=== PATIENT | female | born 1940 | race Caucasian/White ===

== ENCOUNTER 2017-01-09 10:59 | Emergency (ER) | payer MEDICARE, BC ==
[2017-01-09 11:28] VITALS: BP 158/79
--- NOTE | 2017-01-09 11:54 | EDM.PDOC ---
ED HPI GENERAL MEDICAL PROBLEM - General Chief Complaint: Upper Extremity Injury/Pain Stated Complaint: FELL Time Seen by Provider: 01/09/17 11:47 Source of Information: Reports: Patient, Family History Limitations: Reports: No Limitations - History of Present Illness INITIAL COMMENTS - FREE TEXT/NARRATIVE: Pt was walking up the deck when she slipped and fell landing on her left elbow. Daughter states that she also fainted just briefly after falling. Does have known history of osteoporosis. Onset: Today Location: Reports: Upper Extremity, Left Quality: Reports: Ache Severity: Mild Improves with: Reports: None Worsens with: Reports: Movement Context: Reports: Trauma Associated Symptoms: Reports: No Other Symptoms - Related Data Allergies Allergy/AdvReac Type Severity Reaction Status Date / Time erythromycin base Allergy Rash Verified 01/09/17 11:36 Latex, Natural Rubber Allergy Other Verified 01/09/17 11:36 nitrofurantoin Allergy Rash Verified 01/09/17 11:36 [From Macrodantin] Review of Systems - Review of Systems Review Of Systems: See Below Constitutional: Reports: No Symptoms Eyes: Reports: No Symptoms Ears: Reports: No Symptoms Nose: Reports: No Symptoms Mouth/Throat: Reports: No Symptoms Respiratory: Reports: No Symptoms Cardiovascular: Reports: No Symptoms Genitourinary: Reports: No Symptoms Musculoskeletal: Reports: Arm Pain Skin: Reports: No Symptoms Neurological: Reports: Syncope ED EXAM, GENERAL - Physical Exam Exam: See Below Exam Limited By: No Limitations General Appearance: Alert, WD/WN, No Apparent Distress Ears: Normal External Exam, Normal Canal, Hearing Grossly Normal, Normal TMs Nose: Normal Inspection, Normal Mucosa, No Blood Throat/Mouth: Normal Inspection, Normal Lips, Normal Teeth, Normal Gums, Normal Oropharynx, Normal Voice, No Airway Compromise Head: Atraumatic, Normocephalic Neck: Normal Inspection, Supple, Non-Tender, Full Range of Motion Respiratory/Chest: No Respiratory Distress, Lungs Clear, Normal Breath Sounds, No Accessory Muscle Use, Chest Non-Tender Cardiovascular: Normal Peripheral Pulses, Regular Rate, Rhythm, No Edema, No Gallop, No JVD, No Murmur, No Rub GI/Abdominal: Normal Bowel Sounds, Soft, Non-Tender, No Organomegaly, No Distention, No Abnormal Bruit, No Mass Back Exam: Normal Inspection, Full Range of Motion, NT Extremities: Normal Inspection, Normal Range of Motion, No Pedal Edema, Normal Capillary Refill, Arm Pain (left inner elbow) Neurological: Alert, Oriented, CN II-XII Intact, Normal Cognition, Normal Gait, Normal Reflexes, No Motor/Sensory Deficits Course - Vital Signs Last Recorded V/S: Last Vital Signs Temp 98.8 F 01/09/17 11:36 Pulse 55 L 01/09/17 11:36 Resp 16 01/09/17 11:36 BP 158/79 H 01/09/17 11:36 Pulse Ox 98 01/09/17 11:36 - Orders/Labs/Meds Orders: Active Orders 24 hr Category Date Time Status EKG Documentation Completion [RC] ASDIRECTED Care 01/09/17 11:58 Active EKG 12 Lead [EK] Routine Ther 01/09/17 11:58 Ordered Labs: Laboratory Tests 01/09/17 01/09/17 Range/Units 12:49 12:49 WBC 7.5 (4.5-11.0) K/uL RBC 4.51 (3.30-5.50) M/uL Hgb 13.7 (12.0-15.0) g/dL Hct 42.3 (36.0-48.0) % MCV 94 (80-98) fL MCH 30 (27-31) pg MCHC 32 (32-36) % Plt Count 266 (150-400) K/uL Neut % (Auto) 64 (36-66) % Lymph % (Auto) 21 L (24-44) % [place] % (Auto) 12 H (2-6) % Eos % (Auto) 2 (2-4) % Baso % (Auto) 1 (0-1) % Sodium 142 (140-148) mmol/L Potassium 3.6 (3.6-5.2) mmol/L Chloride 106 (100-108) mmol/L Carbon Dioxide 29 (21-32) mmol/L Anion Gap 7.5 (5.0-14.0) mmol/L BUN 12 (7-18) mg/dL Creatinine 0.7 (0.6-1.0) mg/dL Est Cr Clr Drug Dosing 57.44 mL/min Estimated GFR (MDRD) > 60 (>60) Glucose 126 H (74-106) mg/dL Calcium 8.9 (8.5-10.1) mg/dL Meds: Medications Discontinued Medications Generic Name Dose Route Start Last Admin Trade Name Dereck PRN Reason Stop Dose Admin Ibuprofen 800 mg 01/09/17 12:42 01/09/17 12:56 Motrin PO 01/09/17 12:43 800 mg ONETIME ONE Administration Departure - Departure Time of Disposition: 13:15 Disposition: Home, Self-Care 01 Condition: Good Clinical Impression: Fall (on) (from) other stairs and steps, initial encounter, Contusion of left upper arm, initial encounter - Discharge Information Instructions: How to Use a Sling, [id number] Referrals: PCP,None [Primary Care Provider] - Forms: ED Department Discharge Additional Instructions: EKG with normal sinus rhythm. Rate of 55. No acute ST changes. CBC normal. BMP normal. Ice applied and encouraged for next several days. Xray without fracture. Will place her left arm in a sling. To use as tolerates. Ibuprofen 800mg po given in ER. Pt may continue at home as needed for pain. Pt uses a cane at home. Discussed fall safety with pt and family. Pt to followup if pain persists. - Problem List & Annotations (1) Contusion of left upper arm, initial encounter SNOMED Code(s): 13627383 Code(s): S40.022A - CONTUSION OF LEFT UPPER ARM, INITIAL ENCOUNTER Status: Acute Priority: Low Current Visit: Yes (2) Fall (on) (from) other stairs and steps, initial encounter SNOMED Code(s): 446521158 Code(s): W10.8XXA - FALL (ON) (FROM) OTHER STAIRS AND STEPS, INITIAL ENCOUNTER Status: Acute Priority: Medium Current Visit: Yes - My Orders Last 24 Hours: My Active Orders 01/09/17 11:58 EKG Documentation Completion [RC] ASDIRECTED EKG 12 Lead [EK] Routine - Assessment/Plan Last 24 Hours: My Active Orders 01/09/17 11:58 EKG Documentation Completion [RC] ASDIRECTED EKG 12 Lead [EK] Routine
--- NOTE | 2017-01-09 12:36 | CR ---
Elbow 2V Lt INDICATION: fell, left elbow pain FINDINGS: Negative left elbow.
[2017-01-09] MEDS ORDERED: Ibuprofen 800 MG Tab PO ONE (12:42)
== END 2017-01-09 13:50 | disposition home or self-care (01) ==
LOC: JP.ED 10:59
DX: S50.02XA Contusion of left elbow, initial encounter (principal); Z88.1 Allergy status to other antibiotic agents; Z91.040 Latex allergy status; Z88.8 Allergy status to other drugs, medicaments and biological substances; W10.9XXA Fall (on) (from) unspecified stairs and steps, initial encounter
CPT/HCPCS: 36415; 73070; 80048; 85025; 93005; 99284; A9270; 93010